=== PATIENT | female | born 1965 | race Caucasian/White ===

== ENCOUNTER 2017-07-14 20:24 | Emergency (ER) | payer MEDICARE, OTHER ==
[2017-07-14] MEDS ORDERED: HYDROCODONE/ACETAMINOPHEN 5-325 MG (6 TAB/ER DISP) PO PRN (23:11)
[2017-07-14] MEDS ORDERED: PENICILLIN V POTASSIUM 500 MG TABLET PO ONE (23:11)
--- NOTE | 2017-07-14 23:14 | ER Document Report ---
HPI - HPI Patient complains to provider of: dental pain Pain Level: 5 Context: Patient is a 52-year-old female that comes emergency department for chief complaint of dental pain. She states that earlier this afternoon she started getting sharp radiating pain in her right lower jaw. He denies history of the same. She denies neck pain, fever, sore throat, or any other complaints. Past Medical History - General Information source: Patient - Social History Smoking Status: Never Smoker Frequency of alcohol use: None Drug Abuse: None Lives with: Family Family History: Reviewed & Not Pertinent Neurological Medical History: Reports: Other - [facility] Hx: Negative - Immunizations Immunizations up to date: Yes Hx Diphtheria, Pertussis, Tetanus Vaccination: Yes Vertical Provider Document - CONSTITUTIONAL General Appearance: WD/WN, No Apparent Distress - HEENT HEENT: Atraumatic, Normocephalic. negative: Normal ENT Exam Mouth Diagram: 1 - Fractured tooth with erythema of the gumline. No induration, fluctuance, noted abscess, or other abnormality noted in the oral or pharyngeal exam - NECK Neck: Normal Inspection - RESPIRATORY Respiratory: Breath Sounds Normal, No Respiratory Distress O2 Sat by Pulse Oximetry: 97 - CARDIOVASCULAR Cardiovascular: Regular Rate, Regular Rhythm - GI/ABDOMEN Gastrointestinal: Abdomen Soft, Abdomen Non-Tender - MUSCULOSKELETAL/EXTREMETIES Musculoskeletal/Extremeties: MAEW, FROM, Non-Tender - NEURO Level of Consciousness: Awake, Alert, Appropriate Motor/Sensory: No Motor Deficit, No Sensory Deficit - DERM Integumentary: Warm, Dry, No Rash Course - Re-evaluation Re-evalutation: Dental caries with erythematous gumline but no evidence of abscess. Patient has already contacted a dentist. Discussed follow-up and return precautions. Patient states understanding and agreement. - Vital Signs Vital signs: Temp Pulse Resp BP Pulse Ox 99.0 F 71 16 161/77 H 97 07/14/17 20:48 07/14/17 20:48 07/14/17 20:48 07/14/17 20:48 07/14/17 20:48 Discharge - Discharge Clinical Impression: Pain, dental Condition: Stable Disposition: HOME, SELF-CARE Additional Instructions: Examination is consistent with dental fracture and developing infection. Take antibiotics as prescribed, take pain medication if needed, please follow-up with a dentist to have this treated or it will continue to occur. Return for any concerning or worsening symptoms including swelling of the face. Prescriptions: Hydrocodone/Acetaminophen [[place] 5-325 mg Tablet] 1 tab PO ASDIR #6 tablet Penicillin V Potassium [Penicillin Vk 500 mg Tablet] 500 mg PO BID #20 tablet Forms: Elevated Blood Pressure
[2017-07-14 23:28] VITALS: BP 152/75
== END 2017-07-14 23:28 | disposition home or self-care (01) ==
LOC: ER 20:24
DX: K02.9 Dental caries, unspecified (principal); K08.89 Other specified disorders of teeth and supporting structures
CPT/HCPCS: 99282; A9270 ×2